=== PATIENT | female | born 1965 | race Caucasian/White ===

== ENCOUNTER 2017-12-25 14:17 | Emergency (ER) | payer BC ==
--- NOTE | 2017-12-25 17:51 | EDM.PDOC ---
Scribed by Jaz Jones 12/25/17 [id number] for Yamile Guerra NP ED HPI GENERAL MEDICAL PROBLEM - General Chief Complaint: Respiratory Problem Stated Complaint: [id number] FLU NOT GETTING ENOUGH AIR Time Seen by Provider: 12/25/17 16:27 Source of Information: Reports: Patient, RN, RN Notes Reviewed History Limitations: Reports: No Limitations - History of Present Illness INITIAL COMMENTS - FREE TEXT/NARRATIVE: Patient presents to ER with complaint of feeling ill beginning . Patient admits to shortness of breath, chest pain, fever, chills, vomiting with coughing and productive cough--coughing up brown phlegm. States mouth feels mucousy. Patient states she feels as if not getting enough air. Admits to sinus pressure/congestion. Onset Date: 12/23/17 Location: Reports: Chest Quality: Reports: Ache Severity: Moderate Improves with: Reports: None Worsens with: Reports: None Associated Symptoms: Reports: No Other Symptoms Throat Pain Score (Numeric/FACES): 5 - Related Data Allergies Allergy/AdvReac Type Severity Reaction Status Date / Time famotidine [From Pepcid] Allergy Unknown UNKNOWN Verified 10/12/13 10:39 oxycodone [Oxycodone] Allergy Unknown UNKNOWN Verified 10/12/13 10:38 tramadol Allergy Unknown UNKNOWN Verified 10/12/13 10:39 Home Meds: Home Meds Metoprolol Succinate 50 mg PO DAILY 12/25/17 [History] Past Medical History Cardiovascular History: Reports: Hypertension Gastrointestinal History: Reports: Hemorrhoids - Past Surgical History GI Surgical History: Reports: Cholecystectomy Female Surgical History: Reports: Tubal Ligation Social & Family History - Tobacco Use Smoking Status *Q: Never Smoker - Caffeine Use Caffeine Use: Reports: None - Recreational Drug Use Recreational Drug Use: No ED ROS GENERAL - Review of Systems Review Of Systems: ROS reveals no pertinent complaints other than HPI. ED EXAM, GENERAL - Physical Exam Exam: See Below Exam Limited By: No Limitations General Appearance: Alert, WD/WN, No Apparent Distress Eye Exam: Bilateral Eye: Normal Inspection Ears: Other (TM fluid filled--dull.) Nose: Normal Inspection, Normal Mucosa, No Blood Throat/Mouth: Normal Inspection, Normal Lips, Normal Teeth, Normal Gums, Normal Oropharynx, Normal Voice, No Airway Compromise Head: Atraumatic, Normocephalic Neck: Normal Inspection, Supple, Non-Tender, Full Range of Motion Respiratory/Chest: No Respiratory Distress, Lungs Clear, Normal Breath Sounds, No Accessory Muscle Use, Chest Non-Tender Cardiovascular: Normal Peripheral Pulses, Regular Rate, Rhythm, No Edema, No Gallop, No JVD, No Murmur, No Rub GI/Abdominal: Normal Bowel Sounds, Soft, Non-Tender, No Organomegaly, No Distention, No Abnormal Bruit, No Mass (Female) Exam: Deferred Rectal (Female) Exam: Deferred Back Exam: Normal Inspection, Full Range of Motion, NT Extremities: Normal Inspection, Normal Range of Motion, Non-Tender, Normal Capillary Refill, No Pedal Edema Neurological: Alert, Oriented, CN II-XII Intact, Normal Cognition, Normal Gait, Normal Reflexes, No Motor/Sensory Deficits Psychiatric: Normal Affect, Normal Mood Skin Exam: Warm, Dry, Intact, Normal Color, No Rash Lymphatic: No Adenopathy Course - Vital Signs Last Recorded V/S: Last Vital Signs Temp 36.1 C 12/25/17 15:29 Pulse 102 H 12/25/17 15:29 Resp 16 12/25/17 15:29 BP 151/81 H 12/25/17 15:29 Pulse Ox 99 12/25/17 15:29 - Orders/Labs/Meds Labs: Influenza A: Negative Influenza B: Negative Departure - Departure Time of Disposition: 16:41 Disposition: Home, Self-Care 01 Condition: Fair Clinical Impression: Viral upper respiratory tract infection with cough - Discharge Information Instructions: Cough, Adult, [id number], Viral Respiratory Infection, Easy-To- Read, Upper Respiratory Infection, Adult, [id number] Forms: ED Department Discharge Additional Instructions: RX: Cheratussin Drink plenty of water May use Tylenol for pain/fever Use saline irrigation rinses May use decongestant of choice as directed May use imodium for diarrhea caused by decongestant Follow up with your primary care facility if no improvement I have read and agree with the documentation that has been completed regarding this visit. By signing this record, I attest that the documentation was completed in my physical presence and is an accurate record of the encounter.
== END 2017-12-25 16:59 | disposition home or self-care (01) ==
LOC: DL.ED 14:17
DX: J06.9 Acute upper respiratory infection, unspecified (principal); I10 Essential (primary) hypertension; Z88.5 Allergy status to narcotic agent; Z88.8 Allergy status to other drugs, medicaments and biological substances
CPT/HCPCS: 87804; 99284